=== PATIENT | female | born 1945 | race Caucasian/White ===

== ENCOUNTER 2023-12-29 10:34 | Outpatient (CLI) | payer MEDICARE, BC | END 2023-12-29 10:35 | disposition home or self-care (01) | LOC: SCSMRI 10:34 | PROVIDERS: ATTEND Physician Assistant | DX: R47.01 Aphasia (principal); R41.3 Other amnesia | CPT/HCPCS: 70553; 82565 ==

== ENCOUNTER 2024-01-23 11:55 | Emergency (ER) | payer MEDICARE, BC | END 2024-01-23 14:01 | disposition home or self-care (01) | LOC: ERS 11:55 | DX: I10 Essential (primary) hypertension (principal) | CPT/HCPCS: 93005 ==